=== PATIENT | male | born 2000 | race Caucasian/White ===

== ENCOUNTER 2024-04-07 23:34 | Emergency (ER) | payer OTHER, SELFPAY ==
[2024-04-07 23:36] VITALS: BP 156/114
[2024-04-07 23:55] VITALS: BMI 26.5
[2024-04-08] VITALS: BP 173/98
--- NOTE | 2024-04-08 00:15 | ED.GENMED ---
History of Present Illness
General
Chief Complaint: Overdose Intentional
Source: patient and family
Exam Limitations: none
Time Seen by Provider: 04/07/24 23:58
History of Present Illness
History of Present Illness:
See MDM
Past History
Past History
ED Past Medical History: Asthma, Psychiatric (Depression, Denies mood disorder and Autism. ) and Other (ADHD, TBI, Chronic bronchitis, Sinusitis, )
ED Past Surgical History: None
Patient has exhibited threatening behavior?: No
Social History
Tobacco: Smoker
Alcohol: None
Drug: Other (Seasonal drug use the patient is guarded to tell me about.)
Personal: Single
Living: with family
Phy Exam
Physical Exam
Physical Exam:
See MDM
Course
Orders/Labs/Results
Orders:
Orders
04/07/24 23:44
Electrocardiogram (*1) Urgent
Reason for Study: Other
Other Reason for Exam: overdose
EKG- Treatment ONCE
04/08/24 00:12
1:1 Observation - Suicide/ Violent Behavior As Directed
04/08/24 00:14
One to One Observation - Suicide/Violent [1:1 Observation - Suicide/ Violent Behavior] As Directed
Crisis Consult Urgent
Reason for Consult: SI
Lorazepam [Ativan] 2 mg IV NOW STA
04/08/24 00:26
Acetaminophen Urgent
Alcohol Urgent
Complete Blood Count/With Diff Urgent
Comprehensive Metabolic Panel Urgent
Salicylate Urgent
04/08/24 01:32
Haloperidol Lactate [Haldol] 5 mg IM NOW STA
Abnormal Lab Results
04/08/24
00:26
WBC 11.2 H 10^3/uL
(4.8-10.8)
Abs Immat Gran (auto) 0.1 H 10^3/uL
(0-0.05)
Absolute Neuts (auto) 7.1 H 10^3/uL
(1.4-6.5)
Absolute Monos (auto) 0.8 H 10^3/uL
(0.1-0.6)
Carbon Dioxide 21 L mmol/L
(22-30)
Glucose 113 H mg/dl
(70-99)
Albumin 5.3 H g/dl
(3.5-5.0)
Salicylates < 1.0 L mg/dl
(2.0-20.0)
Acetaminophen < 10 L ug/ml
(10-30)
04/08/24 00:26
04/08/24 00:26
Vital Signs
Initial and Last Documented VS:
Initial Vital Signs
Temp Pulse Resp BP Pulse Ox
98.3 F 103 16 156/114 98
04/07/24 23:36 04/07/24 23:36 04/07/24 23:36 04/07/24 23:36 04/07/24 23:36
Last Documented Vital Signs
Temp Pulse Resp BP Pulse Ox
98.3 F 98 19 159/90 98
04/07/24 23:36 04/08/24 01:15 04/08/24 01:15 04/08/24 01:00 04/08/24 01:00
MDM/Problems Addressed
Differential Diagnosis Includes:
HPI and MDM Narrative:
23-year-old male presenting with mother for evaluation of overdose. Patient states that he has been stressed with his new job and has been stressed about not sleeping. His therapist prescribed hydroxyzine. Patient took 5 tablets of 50 mg
hydroxyzine all at once in order to sleep. Patient becoming increasingly irritable and aggressive. Upon further questioning, patient admits that he tried to kill himself but states he feels better now wants to leave. However, patient has very
tangential thoughts is extremely paranoid and ranting. Mother at bedside states this is gotten worse over the past few days and is concerned about his safety
Given the suicidal intent and acted on it and in addition to his current state of mind, I discussed with patient that he is not safe to go home. Patient willing to sign a 201 but I do foresee him becoming more aggressive and changing his mind
Physical exam
General: Irritable, aggressive, paranoid
HEENT: protecting airway. Dry mucous membranes
Neck: appears supple
CV: No evidence of cyanosis. Tachycardic
Resp: No accessory muscle use
Abd: Non-distended
Extremities: No deformities
Neuro: alert
Psych: Anxious and paranoid
Skin: Intact
Problems Addressed including Acute and Chronic Conditions affecting care:
1. Intentional overdose
Acuity: acute
Prognosis: stable
Details: Will obtain medical screening blood work. Will have crisis evaluate for placement
Updates
After allowing us to give 2 mg of IV Ativan, the symptoms improved drastically. However, patient still paranoid and flight risk. Crisis did see him and will work on finding a bed for placement. Patient is willing to go as a 201. Patient is
otherwise medically cleared. After prolonged observation, patient becoming more anxious and agitated. His mother is in good resource and calm him down. I did offer Haldol and patient allowed 5 mg IM Haldol
Differential Diagnosis (but not limited to): Schizophrenia, paranoia, psychosis
Testing considered: CT head
Drug therapy (if applicable): OTC meds, please see d/c instruction regarding Rx drugs
Amount and/or Complexity of Data Reviewed
Clinical info obtained from: Patient. Mother states that this has worsened over the past several days
External data reviewed: N/A
Labs I independently reviewed (but not limited to): Blood cell count 11.2, salicylate and aspirin level negative
Radiology: N/A
Pulse Ox: not hypoxic
EKG independently reviewed: Sinus tachycardia, normal axis, no STEMI
Wellness Ambassador: Sinus tachycardia
Critical Care: N/A
Risk of Complication:
Social Determinants of health: Good social support
Discussed with other providers: crisis
Escalation of Care includes Admit/Obs: Given his suicidal thoughts and high risk for harm, crisis searching for psychiatric bed placement
Occasional wrong word or 'sound a like' substitutions may have occurred due to the inherent limitations of voice recognition software. Read the chart carefully and recognize, using context, where substitutions have occurred.
*Critical Care Note
Total Time (30-74mins, 75-104mins- exclusive of procedures): Not Applicable
ED Attending Note
-
Portions of this chart may have been created with voice recognition software.� Occasional wrong word or��sound alike� substitutions may have occurred due to the inherent limitations of voice recognition software.
Discharge Plan
Departure
Patient Disposition: Psych Facility
Date of Disposition: 04/08/24
Time of Disposition: 02:12
Discharge Problem:
Suicidal ideation
Prescriptions:
No Action
No Current Medications
0
Referrals:
NONE,* [Family Provider] -
Interventions
Interventions:
*Risk Screen - Suicide Last Done: 04/08/24 00:09
*General Assessment Last Done: 04/07/24 23:36
*Neglect/Abuse Screening Last Done: 04/07/24 23:36
ED- Fall Risk Assessment Last Done: 04/08/24 00:53
*ED COVID-19 Vaccine History Last Done: 04/07/24 23:36
ED- Cardiac Assessment Last Done: 04/08/24 00:53
ED- Neurological Assessment Last Done: 04/08/24 00:53
ED-Psychological Assessment Last Done: 04/08/24 00:53
ED- Pulmonary Assessment Last Done: 04/08/24 00:53
Discharge Date and Time
Print Language: IRAQI
[2024-04-08] MEDS: ATIVAN 2 MG IV (00:26)
--- NOTE | 2024-04-08 00:40 | EDRN ---
patient not willing to answer questions in triage -- brought back to room he was instructed to change out of his clothes so that we could monitor his heart-- after staff left the room he pulled the hand-cleaning sensor off the wall. He also then
admitted to wanting to harm himself due to not being able to sleep over this past week. His mom is at bedside and he will be taken to for his and staff safety.
[2024-04-08 00:43] LABS: % Basophils 0.4 % (0-2); % Eosinophils 0.2 % (0-6); % Immature Granulocytes 0.5 % (0-0.5); % Lymphocytes 28.6 % (20.5-51.1); % Monocytes 6.9 % (1.7-9.3); % Neutrophils 63.4 % (42.2-75.2); Absolute Basophils 0.1 10^3/uL (0-0.2); Absolute Immature Granulocytes 0.1 10^3/uL (0-0.05); Absolute Lymphocytes 3.2 10^3/uL (1.2-3.4); Absolute Monocytes 0.8 10^3/uL (0.1-0.6); Absolute Neutrophils 7.1 10^3/uL (1.4-6.5); Hematocrit 49.1 % (39.0-52.0); Mean Corp Hgb Conc. 34.6 g/dL (33.0-37.0); Mean Corpuscular Volume 83.6 fL (80.0-94.0); Mean Platelet Volume 8.6 fL (7.4-10.4); Nucleated Red Blood Cells % 0 % (-); Platelet Count 300 10^3/uL (130-400); Red Blood Cell Count 5.87 10^6/uL (4.70-6.10); Red Cell Dist. Width 12.2 % (11.5-14.5); White Blood Cell Count 11.2 10^3/uL (4.8-10.8)
[2024-04-08 01:00] VITALS: BP 159/90
[2024-04-08 01:04] LABS: ALT (SGPT) 14 U/L (0-50); AST (SGOT) 19 U/L (17-59); Acetaminophen < 10 ug/ml (10-30); Albumin 5.3 g/dl (3.5-5.0); Alkaline Phosphatase 93 U/L (38-126); Blood Urea Nitrogen 15 mg/dl (9-20); Calcium 9.7 mg/dl (8.4-10.2); Carbon Dioxide 21 mmol/L (22-30); Chloride 100 mmol/L (98-107); Estimated Creatinine Clearance > 125 ml/min; Glucose 113 mg/dl (70-99); Potassium 3.8 mmol/L (3.5-5.1); Salicylate < 1.0 mg/dl (2.0-20.0); Sodium 139 mmol/L (135-145); Total Bilirubin 0.6 mg/dl (0.2-1.3); Total Protein 7.9 g/dl (6.3-8.2); eGFR > 60.00
[2024-04-08 01:05] LABS: Alcohol None Detected
[2024-04-08] MEDS: HALDOL 5 MG IM (01:45)
[2024-04-08 15:35] VITALS: BP 143/90
--- NOTE | 2024-04-08 19:20 | EDRN ---
Pt not seen by this RN. Pt picked up by [facility].
== END 2024-04-08 19:21 ==
LOC: EMR 23:34
PROVIDERS: EMERGENCY PHYSICIAN Student in an Organized Health Care Education/Training Program
DX: R45.851 Suicidal ideations (principal); F17.200 Nicotine dependence, unspecified, uncomplicated
CPT/HCPCS: 99285; 96374; 96372; 80053; 80143; 80179; 82077; 85025; 93005